=== PATIENT | female | born 1990 ===

== ENCOUNTER 2025-07-16 10:01 | Outpatient (CLI) | payer OTHER | END 2025-07-16 11:28 | disposition home or self-care (01) | LOC: NST 10:01 | PROVIDERS: ATTEND Obstetrics & Gynecology | DX: Z34.83 Encounter for supervision of other normal pregnancy, third trimester (principal) ==

== ENCOUNTER 2025-07-17 14:45 | Inpatient (IN) | payer OTHER ==
[~2025-07-17] VITALS: Ht 160 cm; Wt 108.9 kg
[2025-07-25] VITALS (9 sets, daily range): BP systolic 105–139; BP diastolic 53–83; O2SAT 100
[2025-07-25] MEDS ORDERED: OXYTOCIN 20 UNITS/500ML RL PIGGYBAG IV ONE (08:49)
[2025-07-25 09:07] LABS: BASO % 0.3 % (0.1-1.2); EOS # 0.10 (0.04-0.54); EOS % 1.1 % (0.7-7.0); LYMPH # 2.13 (1.18-3.74); LYMPH % 24.4 % (19.3-53.1); MEAN PLATELET VOLUME 12.00 fl (9.4-12.4); MONO # 0.51 (0.24-0.82); MONO % 5.8 % (4.7-12.5); NEUT # 5.92 (1.56-6.13); NEUT % 68.1 % (34.0-71.1); RED CELL DISTRIBUTION WIDTH 15.9 % (11.6-14.4)
[2025-07-25 09:51] LABS: INR 0.96
[2025-07-25] MEDS ORDERED: PRENATABS FA T1 EACH PO (10:22)
[2025-07-25] MEDS ORDERED: [UNRECOGNIZED DRUG - OTHER] PO (10:23)
[2025-07-25 10:31] LABS: ALT/SGPT 47.0 U/L (12-78); AST/SGOT 44.0 U/L (15-37); BILIRUBIN TOTAL 0.26 mg/dL (0.3-1.2); BUN CREA RATIO 22.0 (7.0-25.0); CREATININE SERUM 0.45 mg/dL (0.55-1.02); GFR 160.46; GLOBULINA 3.9 G/DL (2.4-3.5); GLUCOSE FASTING 74.0 mg/dL (65-100); OSMOLALITY SERUM 281.0 MOSM/KG (275-295)
[2025-07-25] MEDS ORDERED: RINGERS SOLUTION,LACTATED 1,000 ML IV SCH (11:00)
[2025-07-25] MEDS ORDERED: OXYTOCIN 500 ML IV SCH (11:00)
[2025-07-25] MEDS ORDERED: MORPHINE SULFATE 4 MG/ML CARTRIDGE IV ONE (13:45)
[2025-07-25] MEDS ORDERED: ERYTHROMYCIN BASE OPHT 1GM EACH TUBE OP ONE (15:20)
[2025-07-25] MEDS ORDERED: OXYTOCIN 20 UNITS/1000ML RL PIGGYBAG IV ONE (15:20)
[2025-07-25] MEDS ORDERED: CHLORHEXIDINE GLUCONATE 120 ML BOTTLE TOP ONE (15:21)
[2025-07-25] MEDS ORDERED: LIDOCAINE HCL 1% 10ML VIAL ONE (15:21)
[2025-07-25] MEDS ORDERED: CHLORHEXIDINE GLUCONATE 120 ML BOTTLE TP SCH (17:45)
[2025-07-25] MEDS ORDERED: OXYTOCIN 1,000 ML IV ONE (17:45)
[2025-07-26 00:37] VITALS: BP 138/88
[2025-07-26 06:30] LABS: BASO % 0.2 % (0.1-1.2); EOS # 0.03 (0.04-0.54); EOS % 0.2 % (0.7-7.0); LYMPH # 2.84 (1.18-3.74); LYMPH % 21.3 % (19.3-53.1); MEAN PLATELET VOLUME 12.60 fl (9.4-12.4); MONO # 0.89 (0.24-0.82); MONO % 6.7 % (4.7-12.5); NEUT # 9.46 (1.56-6.13); NEUT % 71.1 % (34.0-71.1); RED CELL DISTRIBUTION WIDTH 15.8 % (11.6-14.4)
[2025-07-26 08:00] VITALS: BP 107/71
[2025-07-26] MEDS ORDERED: DOCUSATE SODIUM 100MG CAP PO SCH (09:00)
[2025-07-26] MEDS ORDERED: PNV,CALCIUM 72/IRON/FOLIC ACID 1 TAB TABLET PO SCH (09:00)
[2025-07-26 16:46] VITALS: BP 102/65
[2025-07-27 00:44] VITALS: BP 106/69
[2025-07-27 08:00] VITALS: BP 90/55
== END 2025-07-27 16:18 | disposition home or self-care (01) | DRG 807 ==
LOC: EDUNIT# 14:45 → OB/GYN 07-22 14:45 → LDR 07-25 07:44 → OB/GYN 07-25 07:44 → LDR 07-25 12:40 → OB/GYN 07-25 19:00
PROVIDERS: Obstetrics & Gynecology Gynecology; ADMIT Obstetrics & Gynecology; ATTEND Obstetrics & Gynecology
PROC: 10E0XZZ Delivery of Products of Conception, External Approach (ICD-10-PCS; principal; 2025-07-25)
PROC: 0KQM0ZZ Repair Perineum Muscle, Open Approach (ICD-10-PCS; 2025-07-25)
PROC: 4A1HXCZ Monitoring of Products of Conception, Cardiac Rate, External Approach (ICD-10-PCS; 2025-07-25)
DX: O70.1 Second degree perineal laceration during delivery (principal); Z37.0 Single live birth; Z3A.40 40 weeks gestation of pregnancy